=== PATIENT | male | born 1935 | race Asian ===

== ENCOUNTER 2023-02-26 12:59 | Emergency (ER) | payer OTHER, MEDICAID ==
[~2023-02-26] VITALS: Ht 160 cm; Wt 59.0 kg
[2023-02-26 13:44] VITALS: BP_SYST 151; PULSE 97; RESP 18; TEMP 98.3; O2SAT 98
[2023-02-26] MEDS ORDERED: NACL 0.9% 1,000 ML IV ONE (14:15)
[2023-02-26 15:08] LABS: ANION GAP 14 (5-15); CALCIUM 8.9 mg/dL (8.4-11.0); CARBON DIOXIDE 21 mmol/L (23-29); CHLORIDE 93 mmol/L (98-107); CREATININE 0.95 mg/dL (0.55-1.30); GLUCOSE 115 mg/dL (74-106); POTASSIUM 3.8 mmol/L (3.5-5.1); SODIUM SERUM 128 mmol/L (136-145); UREA NITROGEN, BLOOD 16 mg/dL (8-21)
[2023-02-26 15:20] LABS: ALANINE AMINOTRANSFERASE 56 U/L (12-78); ALBUMIN 3.1 g/dL (3.4-4.8); ASPARTATE AMINOTRANSFERASE 54 U/L (10-37); TOTAL BILIRUBIN 0.7 mg/dL (0.0-1.0); TOTAL PROTEIN, SERUM 7.8 g/dL (6.4-8.3)
[2023-02-26 15:21] LABS: HEMATOCRIT 39.1 % (36-54); HEMOGLOBIN 13.3 g/dL (14.0-18.0); MEAN CORPUSCULAR HEMOGLOBIN 29 pg (27-31); MEAN CORPUSCULAR HGB CONC 34 % (32-36); MEAN CORPUSCULAR VOLUME 87 fL (79.0-98.0); PLATELET COUNT (AUTO) 211 K/uL (130-430); RED BLOOD CELL COUNT(AUTO) 4.52 MIL/uL (4.2-6.2); RED CELL DISTRIBUTION WIDTH 14.2 % (9.0-15.0); WHITE BLOOD COUNT (AUTO) 5.7 K/uL (4.8-10.8)
[2023-02-26 17:24] LABS: BILIRUBIN,URINE NEGATIVE (NEGATIVE); BLOOD, URINE 1+ (NEGATIVE); CLARITY/URINE CLEAR (CLEAR); COLOR,URINE YELLOW (YELLOW); GLUCOSE,URINE NEGATIVE (NEGATIVE); KETONES,URINE NEGATIVE (NEGATIVE); LEUKOCYTE ESTERASE ,URINE NEGATIVE (NEGATIVE); NITRITE, URINE NEGATIVE (NEGATIVE); PH,URINE 6.5 (5.0-8.0); PROTEIN URINE 2+ (NEGATIVE); UROBILINOGEN,URINE 0.2 (0.2-1.0)
[2023-02-26 17:50] LABS: BAND % (MANUAL) 9 % (0-6); BASOPHILS % (MANUAL) 0 % (0-2); EOSINOPHILS % (MANUAL) 5 % (0-7); LYMPHOCYTES % (MANUAL) 10 % (20-46); MONOCYTES % (MANUAL) 8 % (0-11); OVALOCYTES FEW; PLATELET ESTIMATE ADEQUATE (ADEQUATE); TEAR DROP CELLS FEW
[2023-02-26 17:57] LABS: BACTERIA,URINE RARE /HPF (None Seen); MUCUS,URINE None Seen /LPF (None Seen); RBC,URINE 0-3 /HPF (0-3); WBC,URINE 0-3 /HPF (0-3)
[2023-02-26 20:40] VITALS: BP_SYST 151; PULSE 97; RESP 18; TEMP 98.3; O2SAT 98
== END 2023-02-26 20:40 | disposition home or self-care (01) ==
LOC: SED 12:59
DX: R53.1 Weakness (principal); E11.9 Type 2 diabetes mellitus without complications; I10 Essential (primary) hypertension; Z79.899 Other long term (current) drug therapy
CPT/HCPCS: 99284; 96360; 71045; 85027; 80053; 81000; 85007; 36415; J7030

== ENCOUNTER 2023-03-27 23:45 | Inpatient (IN) | payer OTHER, MEDICAID ==
[~2023-03-27] VITALS: Ht 152.4 cm; Wt 52.2 kg
[2023-03-27 23:50] VITALS: BP_SYST 106; PULSE 93; RESP 14; TEMP 98.2; O2SAT 98
[2023-03-28] MEDS ORDERED: NACL 0.9% 1,000 ML IV ONE
[2023-03-28 00:20] LABS: BASOPHILS # (AUTO) 0.1 K/uL (0.0-0.2); BASOPHILS % (AUTO) 1.2 % (0.0-2.0); EOSINOPHILS # (AUTO) 0.2 K/uL (0.0-0.4); EOSINOPHILS % (AUTO) 3.7 % (0.0-4.0); HEMATOCRIT 31.5 % (36-54); HEMOGLOBIN 10.3 g/dL (14.0-18.0); LYMPHOCYTES # (AUTO) 0.4 K/uL (1.0-5.5); LYMPHOCYTES % (AUTO) 8.3 % (20.5-51.5); MEAN CORPUSCULAR HEMOGLOBIN 28 pg (27-31); MEAN CORPUSCULAR HGB CONC 33 % (32-36); MEAN CORPUSCULAR VOLUME 87 fL (79.0-98.0); MONOCYTES # (AUTO) 0.4 K/uL (0.0-1.0); MONOCYTES % (AUTO) 9.9 % (1.7-9.3); NEUTROPHILS # (AUTO) 3.5 K/uL (1.8-7.7); NEUTROPHILS % (AUTO) 76.9 % (40.0-70.0); PLATELET COUNT (AUTO) 251 K/uL (130-430); RED BLOOD CELL COUNT(AUTO) 3.63 MIL/uL (4.2-6.2); WHITE BLOOD COUNT (AUTO) 4.5 K/uL (4.8-10.8)
[2023-03-28 00:35] LABS: ALANINE AMINOTRANSFERASE 34 U/L (12-78); ALBUMIN 2.9 g/dL (3.4-4.8); ANION GAP 10 (5-15); ASPARTATE AMINOTRANSFERASE 29 U/L (10-37); CALCIUM 8.8 mg/dL (8.4-11.0); CARBON DIOXIDE 22 mmol/L (23-29); CHLORIDE 87 mmol/L (98-107); CREATININE 0.92 mg/dL (0.55-1.30); GLUCOSE 185 mg/dL (74-106); POTASSIUM 4.4 mmol/L (3.5-5.1); TOTAL BILIRUBIN 0.3 mg/dL (0.0-1.0); TOTAL PROTEIN, SERUM 6.3 g/dL (6.4-8.3); UREA NITROGEN, BLOOD 17 mg/dL (8-21)
[2023-03-28 00:43] LABS: SODIUM SERUM 119 mmol/L (136-145)
[2023-03-28 01:39] LABS: BILIRUBIN,URINE NEGATIVE (NEGATIVE); BLOOD, URINE 1+ (NEGATIVE); COLOR,URINE YELLOW (YELLOW); GLUCOSE,URINE NEGATIVE (NEGATIVE); KETONES,URINE NEGATIVE (NEGATIVE); LEUKOCYTE ESTERASE ,URINE NEGATIVE (NEGATIVE); NITRITE, URINE NEGATIVE (NEGATIVE); PH,URINE 6.5 (5.0-8.0); PROTEIN URINE NEGATIVE (NEGATIVE); UROBILINOGEN,URINE 0.2 (0.2-1.0)
[2023-03-28 01:48] LABS: CLARITY/URINE HAZY (CLEAR)
[2023-03-28 01:49] LABS: BACTERIA,URINE None Seen /HPF (None Seen); WBC,URINE 0-3 /HPF (0-3)
[2023-03-28] MEDS ORDERED: METF-379 PO (03:11)
[2023-03-28] MEDS ORDERED: TAMS-11 PO (03:11)
[2023-03-28] MEDS ORDERED: LIP80 PO (03:11)
[2023-03-28] MEDS ORDERED: METO-442 PO (03:11)
[2023-03-28] MEDS ORDERED: VITD2000 PO (03:11)
[2023-03-28] MEDS ORDERED: TICA90TA PO (03:11)
[2023-03-28] MEDS ORDERED: RANO500T4 PO (03:11)
[2023-03-28] MEDS ORDERED: SUVO5TAB PO (03:11)
[2023-03-28] MEDS ORDERED: SODIUM CHLORIDE 3% *HI-ALERT* 300 ML IV ONE (04:00)
[2023-03-28 09:15] VITALS: BP_SYST 120; PULSE 68; RESP 16; TEMP 97.1; O2SAT 97
[2023-03-28 10:06] VITALS: BP_SYST 120; PULSE 68; RESP 16; TEMP 97.1; O2SAT 97
[2023-03-28] MEDS ORDERED: TAMSULOSIN HCL 0.4 MG CAP PO ONE (14:00)
[2023-03-28] MEDS ORDERED: TICAGRELOR 90 MG TABLET PO ONE (14:00)
[2023-03-28 14:30] VITALS: BP_SYST 108; PULSE 104; RESP 19; TEMP 98.6; O2SAT 97
[2023-03-28] MEDS: metFORMIN HCL 500 MG TABLET PO SCH (18:16)
[2023-03-28] MEDS ORDERED: INSULIN REGULAR, HUMAN 100 UNITS/ML, 3 ML VIAL (humuLIN R) SUBCUT PRN (18:30)
[2023-03-28] MEDS ORDERED: DEXTROSE 50% JECT 50 ML DISP.SYRIN IVP PRN (18:30)
[2023-03-28 20:00] VITALS: BP_SYST 120; PULSE 108; RESP 18; TEMP 97.8; O2SAT 97
[2023-03-28] MEDS: CHOLECALCIFEROL (VITAMIN D3) 2,000 UNIT TABLET PO SCH (21:01)
[2023-03-28] MEDS: METOPROLOL TARTRATE 50 MG TABLET PO SCH (21:01)
[2023-03-28] MEDS: TICAGRELOR 90 MG TABLET PO SCH (21:01)
[2023-03-28] MEDS: RANOLAZINE 500 MG TAB.SR.12H PO SCH (21:05)
[2023-03-29] VITALS (7 sets, daily range): BP systolic 110–153; PULSE 70–97; RESP 18–20; TEMP 97.6–99.7; O2SAT 96–98
[2023-03-29 06:46] LABS: ALANINE AMINOTRANSFERASE 36 U/L (12-78); ALBUMIN 2.8 g/dL (3.4-4.8); ANION GAP 10 (5-15); ASPARTATE AMINOTRANSFERASE 26 U/L (10-37); CARBON DIOXIDE 22 mmol/L (23-29); CHLORIDE 96 mmol/L (98-107); CREATININE 0.72 mg/dL (0.55-1.30); FREE T4 (FREE THYROXINE) 1.4 ng/dl (0.8-1.5); GLUCOSE 123 mg/dL (74-106); POTASSIUM 3.9 mmol/L (3.5-5.1); SODIUM SERUM 128 mmol/L (136-145); THYROID STIMULATING HORMONE 1.19 uIu/mL (0.36-3.74); TOTAL BILIRUBIN 0.5 mg/dL (0.0-1.0); TOTAL PROTEIN, SERUM 6.8 g/dL (6.4-8.3); UREA NITROGEN, BLOOD 14 mg/dL (8-21)
[2023-03-29 07:55] LABS: BASOPHILS # (AUTO) 0.1 K/uL (0.0-0.2); BASOPHILS % (AUTO) 1.2 % (0.0-2.0); EOSINOPHILS # (AUTO) 0.2 K/uL (0.0-0.4); EOSINOPHILS % (AUTO) 4.3 % (0.0-4.0); HEMATOCRIT 34.1 % (36-54); HEMOGLOBIN 11.1 g/dL (14.0-18.0); LYMPHOCYTES # (AUTO) 0.4 K/uL (1.0-5.5); LYMPHOCYTES % (AUTO) 9.6 % (20.5-51.5); MEAN CORPUSCULAR HEMOGLOBIN 28 pg (27-31); MEAN CORPUSCULAR HGB CONC 32 % (32-36); MEAN CORPUSCULAR VOLUME 86 fL (79.0-98.0); MONOCYTES # (AUTO) 0.5 K/uL (0.0-1.0); MONOCYTES % (AUTO) 10.6 % (1.7-9.3); NEUTROPHILS # (AUTO) 3.4 K/uL (1.8-7.7); NEUTROPHILS % (AUTO) 74.3 % (40.0-70.0); PLATELET COUNT (AUTO) 276 K/uL (130-430); RED BLOOD CELL COUNT(AUTO) 3.95 MIL/uL (4.2-6.2); RED CELL DISTRIBUTION WIDTH 14.8 % (9.0-15.0); WHITE BLOOD COUNT (AUTO) 4.6 K/uL (4.8-10.8)
[2023-03-29] MEDS: metFORMIN HCL 500 MG TABLET PO SCH ×2 (09:02→17:11)
[2023-03-29] MEDS: CHOLECALCIFEROL (VITAMIN D3) 2,000 UNIT TABLET PO SCH ×2 (09:04→20:44)
[2023-03-29] MEDS: TAMSULOSIN HCL 0.4 MG CAP PO SCH (09:05)
[2023-03-29] MEDS: METOPROLOL TARTRATE 50 MG TABLET PO SCH ×2 (09:05→20:44)
[2023-03-29] MEDS: RANOLAZINE 500 MG TAB.SR.12H PO SCH ×2 (09:05→20:49)
[2023-03-29] MEDS: TICAGRELOR 90 MG TABLET PO SCH ×2 (09:06→20:45)
[2023-03-29] MEDS: ATORVASTATIN 20 MG TABLET PO SCH (09:06)
[2023-03-29] MEDS: NACL 0.9% 1,000 ML IV SCH (11:34)
[2023-03-29] MEDS ORDERED: SODIUM CHLORIDE 500 MG TABLET PO ONE (12:00)
[2023-03-29] MEDS ORDERED: SODI1TAB24 PO (15:07)
[2023-03-29] MEDS: SODIUM CHLORIDE 500 MG TABLET PO SCH ×2 (15:45→20:44)
[2023-03-29] MEDS ORDERED: PREGABALIN 25 MG CAPSULE (LYRICA) PO ONE (19:00)
[2023-03-30] VITALS (7 sets, daily range): BP systolic 117–141; PULSE 83–98; RESP 17–18; TEMP 98–98.9; O2SAT 97–98
[2023-03-30] MEDS: NACL 0.9% 1,000 ML IV SCH (02:33)
[2023-03-30 05:37] LABS: BASOPHILS # (AUTO) 0.1 K/uL (0.0-0.2); EOSINOPHILS # (AUTO) 0.2 K/uL (0.0-0.4); HEMATOCRIT 35.5 % (36-54); HEMOGLOBIN 11.7 g/dL (14.0-18.0); LYMPHOCYTES # (AUTO) 0.9 K/uL (1.0-5.5); MEAN CORPUSCULAR HEMOGLOBIN 28 pg (27-31); MEAN CORPUSCULAR HGB CONC 33 % (32-36); MEAN CORPUSCULAR VOLUME 86 fL (79.0-98.0); MONOCYTES # (AUTO) 0.7 K/uL (0.0-1.0); MONOCYTES % (AUTO) 9.4 % (1.7-9.3); NEUTROPHILS # (AUTO) 5.3 K/uL (1.8-7.7); NEUTROPHILS % (AUTO) 74.6 % (40.0-70.0); PLATELET COUNT (AUTO) 268 K/uL (130-430); RED BLOOD CELL COUNT(AUTO) 4.11 MIL/uL (4.2-6.2); RED CELL DISTRIBUTION WIDTH 15.1 % (9.0-15.0); WHITE BLOOD COUNT (AUTO) 7.1 K/uL (4.8-10.8)
[2023-03-30 06:06] LABS: ALANINE AMINOTRANSFERASE 31 U/L (12-78); ALBUMIN 2.8 g/dL (3.4-4.8); ANION GAP 11 (5-15); ASPARTATE AMINOTRANSFERASE 27 U/L (10-37); CALCIUM 9.1 mg/dL (8.4-11.0); CARBON DIOXIDE 21 mmol/L (23-29); CHLORIDE 90 mmol/L (98-107); CREATININE 0.73 mg/dL (0.55-1.30); GLUCOSE 128 mg/dL (74-106); SODIUM SERUM 122 mmol/L (136-145); TOTAL BILIRUBIN 0.7 mg/dL (0.0-1.0); TOTAL PROTEIN, SERUM 6.9 g/dL (6.4-8.3); UREA NITROGEN, BLOOD 13 mg/dL (8-21)
[2023-03-30] MEDS: ATORVASTATIN 20 MG TABLET PO SCH (09:44)
[2023-03-30] MEDS: CHOLECALCIFEROL (VITAMIN D3) 2,000 UNIT TABLET PO SCH ×2 (09:44→20:07)
[2023-03-30] MEDS: METOPROLOL TARTRATE 50 MG TABLET PO SCH ×2 (09:46→20:07)
[2023-03-30] MEDS: metFORMIN HCL 500 MG TABLET PO SCH ×2 (09:47→17:25)
[2023-03-30] MEDS: RANOLAZINE 500 MG TAB.SR.12H PO SCH ×2 (09:47→20:10)
[2023-03-30] MEDS: SODIUM CHLORIDE 500 MG TABLET PO SCH ×3 (09:48→20:07)
[2023-03-30] MEDS: PREGABALIN 25 MG CAPSULE (LYRICA) PO SCH ×2 (09:48→20:06)
[2023-03-30] MEDS: TICAGRELOR 90 MG TABLET PO SCH ×2 (09:49→20:06)
[2023-03-30] MEDS: TAMSULOSIN HCL 0.4 MG CAP PO SCH (09:50)
[2023-03-30] MEDS ORDERED: SODIUM CHLORIDE 3% *HI-ALERT* 500 ML IV SCH ×2 (15:00→16:00)
[2023-03-30] MEDS ORDERED: SODIUM CHLORIDE 3% *HI-ALERT* 150 ML IV ONE (17:00)
[2023-03-31 00:01] VITALS: BP_SYST 107; PULSE 74; RESP 20; TEMP 97.5; O2SAT 96
[2023-03-31 08:00] VITALS: BP_SYST 141; PULSE 69; RESP 20; TEMP 98.2; O2SAT 97; O2SAT 98
[2023-03-31] MEDS: SODIUM CHLORIDE 500 MG TABLET PO SCH (09:23)
[2023-03-31] MEDS: CHOLECALCIFEROL (VITAMIN D3) 2,000 UNIT TABLET PO SCH (09:23)
[2023-03-31] MEDS: TAMSULOSIN HCL 0.4 MG CAP PO SCH (09:24)
[2023-03-31] MEDS: metFORMIN HCL 500 MG TABLET PO SCH (09:24)
[2023-03-31] MEDS: PREGABALIN 25 MG CAPSULE (LYRICA) PO SCH (09:24)
[2023-03-31] MEDS: METOPROLOL TARTRATE 50 MG TABLET PO SCH (09:24)
[2023-03-31] MEDS: ATORVASTATIN 20 MG TABLET PO SCH (09:25)
[2023-03-31] MEDS: RANOLAZINE 500 MG TAB.SR.12H PO SCH (09:28)
[2023-03-31] MEDS: TICAGRELOR 90 MG TABLET PO SCH (09:41)
[2023-03-31 09:59] VITALS: BP_SYST 141; PULSE 69; RESP 18; TEMP 98.9; O2SAT 98
== END 2023-03-31 10:30 | DRG 641 ==
LOC: SED 23:45 → STU 03-28 03:56 → SMU 03-29 17:30
PROVIDERS: ADMIT Internal Medicine; ATTEND Internal Medicine
DX: E87.1 Hypo-osmolality and hyponatremia (principal); E44.1 Mild protein-calorie malnutrition; I25.10 Atherosclerotic heart disease of native coronary artery without angina pectoris; N40.0 Benign prostatic hyperplasia without lower urinary tract symptoms; E78.5 Hyperlipidemia, unspecified; R53.81 Other malaise; I10 Essential (primary) hypertension; Z79.899 Other long term (current) drug therapy; Z68.22 Body mass index [BMI] 22.0-22.9, adult
CPT/HCPCS: 36415; 70450-TC; 71045; 76376; 80053; 81000; 81001; 81015; 82533; 82962; 83735; 83880; 83930; 83935; 84302; 84439; 84443; 84484; 84999; 85025; 93005; 96360; 96361; 97110-GP; 97116-GP; 97530-GP; 99285; G0378; J1815; J3490